=== PATIENT | female | born 1950 | race Caucasian/White ===

== ENCOUNTER 2017-02-15 17:07 | Emergency (ER) | payer OTHER ==
[~2017-02-15] VITALS: Ht 152.4 cm; Wt 79.5 kg
[~2017-02-15 17:07] MED LIST: ALL60 PO; CHOL200016 PO; Ibuprofen PO; LACT1CAP65 PO; NAPR220C11 PO; OMEG500C3 PO; Oxycodone/Acetaminophen PO
[2017-02-15 17:11] VITALS: BP 138/78; PULSE 80; RESP 16; O2SAT 99
[2017-02-15] MEDS ORDERED: Fluorescein 0.6 mg Ophthalmic Strip ONE (18:23)
[2017-02-15] MEDS ORDERED: Tetracaine 0.5% 4 mL Ophthalmic Solution ONE (18:23)
[2017-02-15] MEDS ORDERED: 0.9% Sodium Chloride Inhalation Solution ONE (18:23)
--- NOTE | 2017-02-15 18:27 | ED.REPORT ---
HPI-Eye Problem Date of Service Feb 15, 2017 ED Provider: Doc,Ed MD Nursing Notes Stated Complaint: LEFT EYE BROKEN BLOOD VESSEL, HEADACHE, NAUSEA Chief Complaint: Eye Allergies: Coded Allergies: clindamycin (Verified Allergy, Unknown, convulsions, 02/15/17) Scheduled Cholecalciferol (Vitamin D3) (Vitamin D) 2,000 Unit Tablet 2,000 UNIT PO DAILY Scheduled PRN ([Ibuprofen]) 600 MG TABLET 600 MG PO Q6H PRN PRN For Pain ([Oxycodone/Acetaminophen]) 1 TAB TABLET 1-2 TAB PO Q4H PRN PRN For Moderate Pain Fexofenadine HCl (Dorota) 60 Mg Tablet 60 MG PO PRN For Congestion Miscellaneous Medications Lactobacillus Acidophilus (Probiotic) 1 Each Capsule 1 EACH PO Naproxen Sodium (Aleve) 220 Mg Capsule 220 MG PO [place]-3 Fatty Acids (Fish Oil) 500 Mg Capsule 500 MG PO General Time Seen by MD: 18:26 Physical Exam Initial Vital Signs Vital Signs (First) Date Time Temp Pulse Resp B/P Pulse Ox O2 Delivery O2 Flow Rate FiO2 02/15/17 17:11 36.0 80 16 138/78 99 Room Air Discharge & Departure Referrals: Ana Vyas MD (PCP) Venancio Mccullough DO Feb 15, 2017 18:27
--- NOTE | 2017-02-15 18:29 | ED.REPORT ---
HPI-Eye Problem Date of Service Feb 15, 2017 ED Provider: Uri Ty MD Patient is a 66 year old female who presents to the ED complaining of L eye redness onset last night. Associated symptoms include a bump on her L eye. She denies a mechanism of injury or pain. She denies cough, vomiting, vision changes , photophobia, drainage, or any other symptoms. Patient does not wear contacts. She has a cataract in her R eye. She is not on blood thinners. Visual acuity in triage is as follows: L 20/16, R 20/25, B 20/16. Nursing Notes Stated Complaint: LEFT EYE BROKEN BLOOD VESSEL, HEADACHE, NAUSEA Chief Complaint: Eye Nursing Notes Reviewed: Yes Allergies: Coded Allergies: clindamycin (Verified Allergy, Unknown, convulsions, 02/15/17) Scheduled Cholecalciferol (Vitamin D3) (Vitamin D) 2,000 Unit Tablet 2,000 UNIT PO DAILY Scheduled PRN ([Ibuprofen]) 600 MG TABLET 600 MG PO Q6H PRN PRN For Pain ([Oxycodone/Acetaminophen]) 1 TAB TABLET 1-2 TAB PO Q4H PRN PRN For Moderate Pain Fexofenadine HCl (Dorota) 60 Mg Tablet 60 MG PO PRN For Congestion Miscellaneous Medications Lactobacillus Acidophilus (Probiotic) 1 Each Capsule 1 EACH PO Naproxen Sodium (Aleve) 220 Mg Capsule 220 MG PO [place]rill-3 Fatty Acids (Fish Oil) 500 Mg Capsule 500 MG PO General Time Seen by MD: 18:26 Chief Complaint Left eye affected Hx Obtained From: Patient, Spouse Arrived By: Walk-in Sudden in Onset?: Yes Onset Occurred: Yesterday Symptom Duration: Since onset Progression Since Onset: Unchanged Severity: Current: No pain currently Severity: Maximum: No pain Similar Sx Previous: No Past Medical History Past Medical History cataract R eye Past Surgical History None reported Smoking History Unknown if Ever Smoker Social History Other Social History: Ambulatory Status Independent Review of Systems Eyes: Reports: Redness left, Denies: Blurred bilateral, Diplopia, Discharge left, Eye pain bilateral, Photophobia, Visual loss bilateral Complete sys rev & neg: except as marked. Respiratory: Denies: Non-productive cough GI: Denies: Vomiting Physical Exam Initial Vital Signs Vital Signs (First) Date Time Temp Pulse Resp B/P Pulse Ox O2 Delivery O2 Flow Rate FiO2 02/15/17 17:11 36.0 80 16 138/78 99 Room Air Initial VS: Reviewed, Vital signs normal Neck: Full range of motion Respiratory: No respiratory distress Skin: Warm, Dry Neurologic: Alert, Oriented, Nonfocal Psychiatric: Mood/affect normal, Behavior normal, Normal thought content Head / Eyes: Normocephalic, PERRL, EOMI L eye scleral hemorrhage on nasal aspect Slit lamp exam normal. General/Constitutional: Awake, Alert, No acute distress Cardiovascular: Heart rate NL Back: Full range of motion Procedures Slit Lamp Exam scleral or subconjunctival hemorrhage on nasal aspect Time: 18:33 Procedure Performed by: ED physician Which Eye: Left Eyelid / Conjunctiva / Sclera: Eyelid(s) normal Cornea/Ant Chamber/Iris/Lens: Ant chamber normal, Ant chamb depth normal Re-Eval/Medical Decision Re-Evaluation/Progress : Time of Eval: 18:38 Re-Evaluation/Progress Note: Discussed plan for discharge. Patient understands and agrees with plan. All questions addressed at this time. Counseled Regarding: Diagnosis, Need for follow-up, When/why to return to ED Discharge & Departure Primary Impression: Scleral hemorrhage of left eye Disposition: Home Discharge Condition All VS Reviewed: Yes Condition: Stable Patient Instructions: Subconjunctival Hemorrhage (ED) Additional Instructions: this should resolve on it's own and is not dangerous. A cool compress may be helpful for comfort. Avoid the use of ibuprofen or naproxen for 2-3 days. this should clear up over the next few days. follow up with ophthalmology or in the emergency department if this is getting worse becomes painful or is associated with visual changes Referrals: Ana Vyas MD (PCP) PIO MALIN MD Attestation Portions of this note were transcribed by Cory Pan. I, Dr. Ty personally performed the history, physical exam and medical decision-making; I reviewed and confirmed the accuracy of the information in the transcribed note. Signed by: Isidro Mckeon, 02/15/17 Uri Ty MD Feb 15, 2017 18:28 CORY PAN Feb 15, 2017 18:35
[2017-02-15 19:03] VITALS: BP 132/76; PULSE 82; RESP 16; O2SAT 100
== END 2017-02-15 19:04 | disposition home or self-care (01) ==
LOC: SED 17:07
DX: H11.32 Conjunctival hemorrhage, left eye (principal); H25.9 Unspecified age-related cataract; Z88.1 Allergy status to other antibiotic agents